=== PATIENT | female | born 2000 ===

== ENCOUNTER 2022-09-16 17:52 | Inpatient (IN) | payer OTHER ==
[~2022-09-16] VITALS: Ht 170.2 cm; Wt 80.7 kg
[2022-09-16] MEDS ORDERED: PRENATAL TABLE1 EAC1 PO (19:32)
[2022-09-16] MEDS ORDERED: IRON325 MG PO (19:32)
== END 2022-09-19 16:34 | disposition home or self-care (01) | DRG 807 ==
LOC: LDR 17:52 → OB/GYN 09-17 17:14
PROVIDERS: ADMIT Obstetrics & Gynecology Gynecology; ATTEND Obstetrics & Gynecology Gynecology
PROC: 3E0P7VZ Introduction of Hormone into Female Reproductive, Via Natural or Artificial Opening (ICD-10-PCS; 2022-09-16)
PROC: 4A1HXCZ Monitoring of Products of Conception, Cardiac Rate, External Approach (ICD-10-PCS; 2022-09-16)
PROC: 10E0XZZ Delivery of Products of Conception, External Approach (ICD-10-PCS; principal; 2022-09-17)
PROC: 0W8NXZZ Division of Female Perineum, External Approach (ICD-10-PCS; 2022-09-17)
PROC: 3E033VJ Introduction of Other Hormone into Peripheral Vein, Percutaneous Approach (ICD-10-PCS; 2022-09-17)
DX: O80 Encounter for full-term uncomplicated delivery (principal); Z37.0 Single live birth; Z3A.39 39 weeks gestation of pregnancy; Z20.822 Contact with and (suspected) exposure to COVID-19